=== PATIENT | male | born 1965 | race Caucasian/White ===

== ENCOUNTER 2020-08-16 11:01 | Outpatient (CLI) | payer OTHER ==
--- NOTE | 2020-08-16 11:36 | CT ---
CT Stone Protocol: 08/16/2020 11:29 AM HISTORY: Left flank pain with history of kidney stones COMPARISON: None. TECHNIQUE: Multiple contiguous axial images were obtained and a CT of the abdomen and pelvis without IV contrast . Coronal and sagittal reformats were performed. FINDINGS: This examination is limited for the evaluation of solid organs and vascular structures due to the lac k of intravenous contrast. Lower Chest: Approximately 4 adjacent pulmonary nodules are seen in the right lower lobe measuring up to 4 mm in size. Abdomen: Liver: Diffuse fatty infiltration. Bile Ducts: Normal caliber. Gallbladder: Removed. Pancreas: within normal limits. Spleen: within normal limits. Adrenals: within normal limits. Kidneys: Tiny atrophic right kidney. No left kidney stones or hydronephrosis. Pelvis: Reproductive Organs: No pelvic masses. Ureters: within normal limits. Bladder: within normal limits. Bowel: Normal caliber. Mesenteric Lymph Nodes: No enlarged mesenteric lymph nodes. Peritoneum: No ascites or free air, no fluid collection. Vessels: Normal caliber aorta Retroperitoneum: within normal limits. Abdominal Wall: within normal limits. Bones: Degenerative changes in the spine. IMPRESSION: 1. No evidence of acute intraabdominal or pelvic abnormality. 2. Atrophic right kidney 3. Fatty liver 4. Scattered right lower lobe pulmonary nodules. A CT the chest with contrast is recommended for furt her evaluation.
== END 2020-08-16 11:02 | disposition home or self-care (01) ==
LOC: MADCT 11:01
PROVIDERS: ATTEND Family Medicine
DX: N20.0 Calculus of kidney (principal); R39.9 Unspecified symptoms and signs involving the genitourinary system; N26.1 Atrophy of kidney (terminal); K76.0 Fatty (change of) liver, not elsewhere classified; R91.8 Other nonspecific abnormal finding of lung field
CPT/HCPCS: 74176

== ENCOUNTER 2021-01-06 19:59 | Emergency (ER) | payer OTHER | END 2021-01-06 21:06 | disposition short-term general hospital (02) | LOC: MADERS 19:59 | DX: S80.811A Abrasion, right lower leg, initial encounter (principal); I10 Essential (primary) hypertension; E11.9 Type 2 diabetes mellitus without complications; E66.9 Obesity, unspecified; Z79.84 Long term (current) use of oral hypoglycemic drugs; Z79.899 Other long term (current) drug therapy; Z79.82 Long term (current) use of aspirin; M25.561 Pain in right knee; X58.XXXA Exposure to other specified factors, initial encounter | CPT/HCPCS: 99284 ==

== ENCOUNTER 2021-01-12 10:28 | Outpatient (CLI) | payer OTHER | END 2021-01-12 10:29 | disposition home or self-care (01) | LOC: MADCT 10:28 | PROVIDERS: ATTEND Family Medicine | DX: N20.0 Calculus of kidney (principal); K76.0 Fatty (change of) liver, not elsewhere classified | CPT/HCPCS: 74176 ==

== ENCOUNTER 2021-08-26 15:35 | Outpatient (CLI) | payer OTHER | END 2021-08-26 15:36 | disposition home or self-care (01) | LOC: MADRAD 15:35 | PROVIDERS: ATTEND Family Medicine | DX: J20.9 Acute bronchitis, unspecified (principal); R06.02 Shortness of breath | CPT/HCPCS: 71046 ==

== ENCOUNTER 2021-11-30 11:10 | Outpatient (CLI) | payer OTHER | END 2021-11-30 11:11 | disposition home or self-care (01) | LOC: MADCT 11:10 | PROVIDERS: ATTEND Family Medicine | DX: R91.8 Other nonspecific abnormal finding of lung field (principal) | CPT/HCPCS: 71260 ==